=== PATIENT | male | born 1965 | race Caucasian/White ===

== ENCOUNTER 2016-12-20 16:47 | Inpatient (IN) | payer BC, OTHER ==
[~2016-12-20] VITALS: Ht 175.3 cm; Wt 90.7 kg
[2016-12-20 17:30] VITALS: BP 137/80
--- NOTE | 2016-12-20 17:30 | NUR ---
Pre-Admission Note: Client is seen in intake a this time. He is alert and oriented x 4. Able to verbalize his needs. Able to answer questions readily and appropriately regarding the discharge process. Patient verbalized good understanding. Appears anxious and disheveled with generalized sweating. He denies any allergies. Denies any seizure history. He states that he is here to detox from benzodiaepines and opiates. He reports past medical hx of Trigeminal Neuralgia and Depression. Denies having a PCP. VS as ff: Temp 98.1, Pulse 84, RR 19, BP 137/80, PL 6/10. COWS 6/CIWA 6. MD Kay is in to see and evaluate the client. Will continue with the admission process.
--- NOTE | 2016-12-20 17:45 | NUR ---
Admission Note: Patient is a 51 year old male admitted for benzodiazepine and opiate dependence under the care of Dr. Nahum Kay. Alert and oriented x 4. Able to make his needs known. No changes in LOC noted. Respirations even and unlabored. No SOB noted. Skin warm and dry to touch. Abdomen soft and non-distended. Reports LBM was today. Denies N/V/D or constipation noted. Bladder non-distended. No complains of dysuria noted noted. Voids independently. Ambulatory ad ilia with steady gait. He reports past medical hx of Trigeminal Neuralgia and Depression. NKA. FULL CODE. Follows a liquid diet at home due to difficulty chewing related to Dx of Trigeminal Neuralgia. Patient brought in his home meds in the unit. Denies having a seizure. He reports that his longest period of sobriety was 20 years between 23 years old to 44 years old. He denies having a PCP at this time. Substance Use: 1. Valium - since 1 year ago. Orally takes 5-10 mg on and off for the past 3 months. Last taken 5 days ago, 10 mg. 2. Klonopin - since 5 years ago. Orally takes 2 mg daily x 1 year. Last taken 12/19/2016, 2 mg, 3. Tramadol - since 3 months ago. Orally takes 50 mg twice a day for pain. Last taken was 12/19/2016 50 mg. Treatment History: 1. [facility] in [place] - 27 years ago. 2. [facility] - 6 weeks ago and [address] Kay entered admission orders at this time. Will continue to monitor closely.
[2016-12-20] MEDS ORDERED: DICYCLOMINE HCL 20 MG TABLET PO PRN (18:00)
[2016-12-20] MEDS ORDERED: MAG HYDROX/AL HYDROX/SIMETH 30 ML LIQUID UDC PO PRN (18:00)
[2016-12-20] MEDS ORDERED: METHOCARBAMOL 750 MG TABLET PO PRN (18:00)
[2016-12-20] MEDS ORDERED: diphenhydrAMINE 50 MG CAPSULE PO PRN (18:00)
[2016-12-20] MEDS ORDERED: DIAZEPAM 5 MG TABLET PO PRN (18:00)
[2016-12-20] MEDS ORDERED: MIRALAX 17 GM POWD.PACK PO PRN (18:00)
[2016-12-20] MEDS ORDERED: LOPERAMIDE HCL 2 MG CAPSULE PO PRN ×2 (18:00)
[2016-12-20] MEDS ORDERED: ONDANSETRON 4 MG/2 ML VIAL IM PRN (18:00)
[2016-12-20] MEDS ORDERED: DIAZEPAM 10 MG TABLET PO PRN ×2 (18:00)
[2016-12-20] MEDS ORDERED: BUPRENORPHINE HCL 2 MG TAB.SUBL SL PRN (18:00)
[2016-12-20] MEDS ORDERED: HYDROXYZINE PAMOATE 25 MG CAPSULE PO PRN (18:00)
[2016-12-20] MEDS ORDERED: LORAZEPAM 2 MG/1 ML VIAL IM PRN (18:00)
[2016-12-20] MEDS ORDERED: CLONIDINE HCL 0.1 MG TABLET PO PRN (18:00)
[2016-12-20] MEDS ORDERED: [UNRECOGNIZED DRUG - OTHER] (18:05)
[2016-12-20] MEDS ORDERED: QUET50TA PO (18:05)
[2016-12-20] MEDS ORDERED: METH1ADH6 TP (18:05)
[2016-12-20] MEDS ORDERED: PRAM0.253 PO (18:05)
[2016-12-20] MEDS ORDERED: CLON0.1T PO (18:05)
[2016-12-20] MEDS ORDERED: DEXT15CA17 PO (18:05)
[2016-12-20] MEDS ORDERED: HYDR-3895 PO (18:05)
[2016-12-20] MEDS ORDERED: ORPH100T2 PO (18:05)
[2016-12-20] MEDS ORDERED: CELE200C PO (18:05)
[2016-12-20] MEDS ORDERED: MECL-102 PO (18:05)
[2016-12-20] MEDS ORDERED: GABA-534 PO (18:05)
[2016-12-20] MEDS ORDERED: ACET-73 PO (18:05)
[2016-12-20] MEDS ORDERED: SELENIUM (18:05)
[2016-12-20] MEDS ORDERED: BUPR100T6 PO (18:05)
[2016-12-20] MEDS ORDERED: MULT1TAB73 PO (18:05)
[2016-12-20] MEDS ORDERED: ONDA4TAB10 PO (18:05)
[2016-12-20] MEDS ORDERED: IRON1CAP24 PO (18:05)
[2016-12-20] MEDS ORDERED: QUET25TA PO (18:05)
[2016-12-20 18:17] LABS: *AMPHETAMINE, URINE NEGATIVE (NEGATIVE); *BARBITURATE, URINE NEGATIVE (NEGATIVE); *CANNABINOID, URINE NEGATIVE (NEGATIVE); *COCCAINE, URINE NEGATIVE (NEGATIVE); *OPIATE, URINE NEGATIVE (NEGATIVE); *PHENCYCLIDINE SCREEN,URINE NEGATIVE (NEGATIVE)
--- NOTE | 2016-12-20 18:29 | NUR ---
Valum 5 mg PO/Robaxin 750 mg PO given: Patient noted with complain of 6/10 generalized pain and CIWA 6 due to anxiety, agitation and sweats. Medicated patient with Valium 5 mg PO as ordered. Will monitor for effectiveness.
--- NOTE | 2016-12-20 18:44 | NUR ---
End of Shift Notes: Patient is a 51 year old male admitted for opiate and BZO dependence who was placed on a 5-day Valium taper that will be starting tonight. On fall and seizure precautions. Safety precautions in place. All needs met and attended. Will endorse to night nurse for continuity of care.
--- NOTE | 2016-12-20 19:15 | NUR ---
START OF SHIFT Received 51 year old male patient admitted on 12/20/16. Pt is full code with NKA. Pt reports a PMHx of Trigeminal Neuralgia and depression. He reports using valium 5-10 mg daily for 3 months. Last dose as 10 mg on 12/16/16, Klonopin 2 mg daily for 1 year. Last dose was 2 mg on 12/19/16. And Tramadol 50 mg BID for 3 months. Last dose was 50 mg on 12/19/16. Pt placed on 5 day Valium taper. Per endorsement, pt received Valim 5 mg and Robaxin. Will monitor effectiveness. Pt is alert and oriented x4, breathing is even and unlabored. Safety meaures in place. Will continue to monitor.
--- NOTE | 2016-12-20 19:30 | NUR ---
REASSESSMENT PRN Robaxin and Valium effective. Pt reports pain at 5/10 and decreased anxiety. CIWA:5. Will continue to monitor.
[2016-12-20 20:00] VITALS: BP 141/85
[2016-12-20 20:04] LABS: ALANINE AMINOTRANSFERASE 17 U/L (16-63); ALKALINE PHOSPHATASE 72 U/L (50-136); ASPARTATE AMINOTRANSFERASE 14 U/L (15-37); BILIRUBIN,TOTAL 0.4 mg/dL (0.2-1.0); CARBON DIOXIDE 29 mmol/L (21-32); CHLORIDE 100 mmol/L (98-107); CREATININE 1.2 mg/dL (0.6-1.3); GLUCOSE 92 mg/dL (74-106); MAGNESIUM 1.9 mg/dL (1.8-2.4); POTASSIUM 3.7 mmol/L (3.5-5.1); TOTAL PROTEIN, SERUM 7.4 g/dL (6.4-8.2); UREA NITROGEN, BLOOD 12 mg/dL (7-18)
[2016-12-20 20:11] LABS: ETHANOL < 3 MG/DL (0-0)
[2016-12-20 20:17] LABS: BASOPHILS % (AUTO) 0.2 % (0.0-2.0); EOSINOPHILS # (AUTO) 0.1 K/uL (0.0-0.7); EOSINOPHILS % (AUTO) 1.3 % (0.0-7.0); HEMATOCRIT 46.8 % (40-50); HEMOGLOBIN 15.3 G/DL (14.0-18.0); LYMPHOCYTES # (AUTO) 2.5 K/UL (0.8-4.8); LYMPHOCYTES % (AUTO) 27.5 % (20.5-51.5); MEAN CORPUSCULAR HEMOGLOBIN 28.6 UUG (27.0-31.0); MEAN CORPUSCULAR HGB CONC 33 g/dL (32.0-37.0); MEAN CORPUSCULAR VOLUME 87.2 FL (82.0-92.0); MONOCYTES # (AUTO) 0.6 K/UL (0.1-1.30); MONOCYTES % (AUTO) 6.9 % (0.0-11.0); NEUTROPHILS # (AUTO) 5.9 K/UL (1.8-8.9); NEUTROPHILS % (AUTO) 64.1 % (38.5-71.5); PLATELET COUNT (AUTO) 322 K/UL (150-450); RED BLOOD CELL COUNT(AUTO) 5.36 MIL/UL (4.7-6.1); WHITE BLOOD COUNT (AUTO) 9.1 K/UL (4.0-11.2)
[2016-12-20] MEDS: GABAPENTIN 300 MG CAPSULE PO SCH (20:21)
[2016-12-20] MEDS ORDERED: DIAZEPAM 10 MG TABLET PO SCH (21:00)
--- NOTE | 2016-12-20 21:00 | NUR ---
MEDICATION REFUSAL 2100 dose of Valium 10 mg refused by pt. Risks/benefits explained x3. Dr. Kay made aware. Will continue to monitor
--- NOTE | 2016-12-20 21:33 | NUR ---
PRN SUBUTEX Pt complains of body and joint aches, diaphoresis, increased anxiety and agitation. PRN Subutex 4 mg administered as ordered for COWS:12. Breathing even and unlabored, safety measures in place. Will monitor effectiveness.
--- NOTE | 2016-12-20 22:23 | NUR ---
PRN SUBUTEX REASSESSMENT PRN medication effective. COWS:7. Pt lying comfortably in bed. Breathing even and unlabored, safety measures in place. Will monitor.
--- NOTE | 2016-12-21 | NUR ---
VITALS REFUSED/COWS, CIWA DEFERRED 0000 vitals refused by pt. COWS and CIWA deferred d/t pt lying in bed with eyes closed noted to be asleep. Respirations 16, breathing is even and unlabored. Safety measures in place. Will continue to monitor.
--- NOTE | 2016-12-21 04:00 | NUR ---
VITALS REFUSED/COWS, CIWA DEFERRED 0400 vitals refused by pt. COWS and CIWA deferred d/t pt lying in bed with eyes closed noted to be asleep. Respirations 16, breathing is even and unlabored. Safety measures in place. Will continue to monitor.
--- NOTE | 2016-12-21 07:04 | NUR ---
END OF SHIFT Pt is a 51 year old male patient admitted on 12/20/16. Pt is full code with NKA. Pt reports a PMHx of Trigeminal Neuralgia and depression. Pt refused his 2100 dose of Valium, Dr. Kay was made aware. He also received PRN Subutex for COWS:12. He slept a total of 7 hrs, Intake: 796mL, Void: x2, BM:0, COWS:12, CIWA:7. Pt remains alert and oriented x4, breathing is even and unlabored. Safety measures in place. Endorsed to oncoming shift.
[2016-12-21 08:00] VITALS: BP 128/87
[2016-12-21] MEDS: CELEBREX 200 MG PO SCH (08:16)
[2016-12-21] MEDS: MULTIVITAMINS,THERAPEUTIC TABLET PO SCH (08:16)
[2016-12-21] MEDS: GABAPENTIN 300 MG CAPSULE PO SCH ×3 (08:16→21:16)
[2016-12-21] MEDS ORDERED: TUBERCULIN,PURIF.PROT.DERIV. 5 TU/0.1 ML TEST ID ONE (09:00)
[2016-12-21] MEDS ORDERED: PATIENT MAY USE OWN MED- MD OK TOP SCH (09:00)
[2016-12-21] MEDS ORDERED: DIAZEPAM 10 MG TABLET PO SCH (09:00)
--- NOTE | 2016-12-21 09:21 | NUR ---
START OF SHIFT Patient is 51yo male admitted for supervised withdrawal from benzodiazepines and tramadol. Alert and oriented X4, full code with NKA. On assessment this AM: CIWA = 8 and COWS: 5 . Denies SOB, chest pain. Vitals signs: 128/87, HR 60, RR16, 98% 02 sat RA, T 98.2, 8/10 pain. Reports anxiety, dilated pupil, headache, body ache, nausea and numbing/tingling sensation. On 5-Day Valium taper. Med compliant with AM meds. Patient would like to speak to MD about wanting his Valium dose lowered. Encouraged patient to hydrate with fluids. Patient was encouraged to attend group meetings today. Patient goes out with escort for smoke break. Will continue to monitor patient.
[2016-12-21] MEDS: LIDOCAINE 5% PATCH TD SCH (09:51)
[2016-12-21 12:00] VITALS: BP 140/84
--- NOTE | 2016-12-21 12:13 | NUR ---
Therapist prompted client about group times. Client stated he will attend all groups.
[2016-12-21] MEDS: ACETAMINOPHEN 325 MG TABLET PO PRN ×2 (12:26→18:28)
[2016-12-21] MEDS: METHOCARBAMOL 500 MG TABLET PO PRN ×2 (12:26→18:28)
[2016-12-21] MEDS: ONDANSETRON ODT 4 MG TAB.RAPDIS SL PRN (12:26)
[2016-12-21] MEDS: KETOROLAC TROMETHAMINE 30 MG INJ IM PRN (12:28)
--- NOTE | 2016-12-21 12:28 | NUR ---
PRN TYLENOL, ROBAXIN, KETOROLAC AND ONDANSETRON Patient complains of pain on jaw and shoulder 8/10 and nausea. PRN tylenol, robaxin, ketorolac injection, and ondansetron given. Will continue to monitor patient.
--- NOTE | 2016-12-21 13:28 | NUR ---
REASSESSMENT PRN TYLENOL, ROBAXIN, KETOROLAC AND ONDANSETRON Patient reports pain level decreased to 5/10 (from 8/10) and denies nausea at this time.
[2016-12-21] MEDS: DIAZEPAM 5 MG TABLET PO SCH ×2 (14:47→21:16)
[2016-12-21] MEDS: BUPRENORPHINE HCL 2 MG TAB.SUBL SL SCH ×2 (14:48→21:00)
[2016-12-21 16:00] VITALS: BP 132/98
--- NOTE | 2016-12-21 18:28 | NUR ---
PRN TYLENOL AND ROBAXIN Patient complains of pain 6/10, on bodyache and headache, prn robaxin and tylenol given. Will continue to monitop patient.
--- NOTE | 2016-12-21 18:44 | NUR ---
END OF SHIFT Patient is 51yo male admitted for supervised withdrawal from benzodiazepines and tramadol. Alert and oriented X4, full code with NKA. On 5-Day Valium taper. Subutex taper ordered today; however, pt. refused his 15:00pm scheduled dose, notified. Most recent CIWA: 3 and COWS: 2 . Patient reports mild anxiety, bodyache, and nausea. PRN Tylenol, Robaxin, Ketorolac injection and ondansetron given at 1228pm, effective. Patient received Tylenol and robaxin at 1828pm. Patient asked about his seroquel and states he takes it at night, Dr. Cagle notified by charge nurse. Patient tolerating meals without vomiting. PPD skin test performed on LFA to be read on 12/23/16. clothes modeltop steep tender will continue to monitor patient.
--- NOTE | 2016-12-21 19:15 | NUR ---
START OF SHIFT Received 51 year old male patient admitted on 12/20/16. Pt is full code with NKA. Pt reports a PMHx of Trigeminal Neuralgia and depression. He reports using Valium 5-10 mg daily for 3 months. Last dose as 10 mg on 12/16/16, Klonopin 2 mg daily for 1 year. Last dose was 2 mg on 12/19/16. And Tramadol 50 mg BID for 3 months. Last dose was 50 mg on 12/19/16. Pt placed on 3 day Valium taper and 3 day Subutex taper. Per endorsement, pt refused 1500 Subutex. Pt is alert and oriented x4, breathing is even and unlabored. Safety measures in place. Will continue to monitor.
--- NOTE | 2016-12-21 19:19 | NUR ---
REASSESSMENT PRN TYLENOL and ROBAXIN Patient reports pain level decreased to 4/10, effective
[2016-12-21 20:00] VITALS: BP 144/99
--- NOTE | 2016-12-21 21:30 | NUR ---
MEDICATION REFUSAL Pt refused 2100 dose of Subutex 2mg. Pt reports he does not need it. COWS:3. Risks/benefits were explained x3, pt still refused. Breathing is even and unlabored, safety measures in place. Will continue to monitor.
[2016-12-21] MEDS: QUETIAPINE FUMARATE 25 MG TABLET PO PRN (21:43)
--- NOTE | 2016-12-21 21:43 | NUR ---
PRN SEROQUEL Pt complains of inability to sleep. PRN Seroquel administered as ordered. Breathing is even and unlabored, safety measures in place. Will monitor effectiveness.
--- NOTE | 2016-12-21 22:43 | NUR ---
PRN SEROQUEL REASSESSMENT PRN medication effective. Pt lying in bed with eyes closed noted to be asleep. Respirations 16, breathing is even and unlabored. Safety measures in place. Will monitor.
--- NOTE | 2016-12-22 | NUR ---
VITALS REFUSED/COWS,CIWA DEFERRED 0000 vitals refused. COWS and CIWA deferred d/t pt lying in bed with eyes closed noted to be asleep. Respirations 16, breathing is even and unlabored. Safety measures in place. Will monitor.
--- NOTE | 2016-12-22 04:00 | NUR ---
VITALS REFUSED/COWS,CIWA DEFERRED 0400 vitals refused. COWS and CIWA deferred d/t pt lying in bed with eyes closed noted to be asleep. Respirations 16, breathing is even and unlabored. Safety measures in place. Will continue to monitor.
--- NOTE | 2016-12-22 07:00 | NUR ---
END OF SHIFT Pt is a 51 year old male patient admitted on 12/20/16. Pt is full code with NKA. Pt reports a PMHx of Trigeminal Neuralgia and depression. Pt placed on 3 day Valium taper and 3 day Subutex taper. He refused his 2100 dose of Subutex. At 2143 he received PRN Seroquel. He slept a total of 8hrs, Intake: 500mL, Void: x3, BM:0, COWS:3, CIWA:3. Pt remains alert and oriented x4, breathing is even and unlabored. Safety meaures in place. Endorsed to oncoming shift.
--- NOTE | 2016-12-22 07:32 | NUR ---
Start of shift note; Received report from night nurse. Patient is a 51 year old male admitted on 12/20/16 for Benzo and Opiate withdrawals. Patient was placed on a 3 day Valium and 3 day Subutex tapers, no adverse reactions noted. . Patient reported past Medical history of trigeminal neuralgia, depression. Patient slept for 8 hours. Patient is on fall and seizure precaution. Bed in lowest position, call light within reach. Will continue to monitor patient.
[2016-12-22] MEDS: SALONPAS TD SCH (08:46)
[2016-12-22] MEDS: CELEBREX 200 MG PO SCH (08:46)
[2016-12-22] MEDS: LIDOCAINE 5% PATCH TD SCH (08:47)
[2016-12-22] MEDS: MULTIVITAMINS,THERAPEUTIC TABLET PO SCH (08:47)
[2016-12-22] MEDS: GABAPENTIN 300 MG CAPSULE PO SCH ×3 (08:47→21:26)
[2016-12-22] MEDS: BUPRENORPHINE HCL 2 MG TAB.SUBL SL SCH ×4 (08:52→21:00)
[2016-12-22] MEDS: DIAZEPAM 5 MG TABLET PO SCH ×4 (08:52→22:39)
[2016-12-22 08:53] VITALS: BP 122/82
[2016-12-22] MEDS ORDERED: DIAZEPAM 5 MG TABLET PO SCH (09:00)
[2016-12-22] MEDS: DULOXETINE 60 MG CAPSULE.DR PO SCH (09:01)
[2016-12-22 10:09] LABS: HEPATITIS B SURFACE AG Negative (Negative)
[2016-12-22] MEDS: ACETAMINOPHEN 325 MG TABLET PO PRN ×2 (11:02→21:26)
[2016-12-22] MEDS: METHOCARBAMOL 500 MG TABLET PO PRN ×2 (11:02→21:26)
--- NOTE | 2016-12-22 11:02 | NUR ---
PRN medication; Patient is complaining of shoulder pain rated 5/10 and also muscle aches. PRN Tylenol 650mg PO and Robaxin 500mg PO PRN given for pain and muscle aches. Will continue to monitor patient for effectiveness of medication.
[2016-12-22 12:00] VITALS: BP 132/88
--- NOTE | 2016-12-22 12:02 | NUR ---
Re-assessment; Patient stated decrease of muscle aches and shoulder pain rated 2/10 at this time. PRN medications were effective,.
--- NOTE | 2016-12-22 13:22 | NUR ---
Therapist prompted client about group times. Client stated he will attend all groups today.
[2016-12-22 16:00] VITALS: BP 135/84
[2016-12-22] MEDS: KETOROLAC TROMETHAMINE 30 MG INJ IM PRN (16:47)
--- NOTE | 2016-12-22 16:47 | NUR ---
PRN medication; Patient is complaining of shoulder pain rated 9/10, PRN Toradol 30mg IM given on left deltoid area as per ordered. Will continue to monitor patient for effectiveness of medication.
--- NOTE | 2016-12-22 17:47 | NUR ---
Re-assessment; Patient reports pain of 3/10 at this time. Toradol PRN medication is effective.
--- NOTE | 2016-12-22 18:17 | NUR ---
End of shift note; Patient is AOX4. Patient is a 51 year old male admitted on 12/20/16 for Benzo and Opiate withdrawals. Patient was placed on a 3 day Valium and 3 day Subutex tapers, no adverse reactions noted. . Patient reported past Medical history of trigeminal neuralgia, depression. Patient is on fall and seizure precaution. Bed in lowest position, call light within reach. Patient was non-compliant with medication regime, patient was educated regarding the importance of compliance to medications pt verbalized understanding. MD was notified regarding patient's non compliance to medications. Met all needs.
[2016-12-22 20:00] VITALS: BP 138/94
--- NOTE | 2016-12-22 20:00 | NUR ---
START OF SHIFT NOTE RECEIVED REPORT FROM DAY SHIFT NURSE. PATIENT IS A 51 YEAR OLD MALE, ADMITTED FOR OPIATE/BENZO DEPENDENCE. PATIENT IS A 5 DAYS VALIUM AND SUBUTEX TAPER. PATIENTS DRUG OF CHOICE ARE VALIUM, KLONOPIN AND TRAMADOL. PATIENT REPORTS PMH OF TRIGEMINAL NEURALGIA AND DEPRESSION. NO SEIZURE HISTORY. PER DAY SHIFT NURSE, PATIENT HES BEEN REFUSING SUBUTEX AND VALIUM . DR. REYNOSO AWARE. LAST COWS 3 AND CIWA 2. ON FALL PRECAUTION. SAFETY MEASURES IN PLACE. CALL LIGHT IN REACH. WILL CONTINUE TO MONITOR.
--- NOTE | 2016-12-22 21:00 | NUR ---
SUBUTEX REFUSED PATIENT REFUSED HIS SUBUTEX. EXPLAINED RISKS/BENEFITS BUT STILL REFUSED. DR. REYNOSO AWARE. WILL CONTINUE TO MONITOR
[2016-12-22] MEDS: QUETIAPINE FUMARATE 25 MG TABLET PO PRN (21:26)
--- NOTE | 2016-12-22 21:26 | NUR ---
PRN SEROQUEL,TYLENOL AND ROBAXIN ADMINISTRATION PATIENT C/O JAW/BOTH SHOULDER PAIN 11/27. PRN TYLENOL AND ROBAXIN GIVEN. PATIENT ALSO REQUESTS FOR SLEEP AID. PRN SEROQUEL GIVE. WILL MONITOR FOR EFFECTIVENESS
--- NOTE | 2016-12-22 22:26 | NUR ---
PRN ROBAXIN AND TYLENOL RE-ASSESSMENT PATIENT STATES TYLENOL AND ROBAXIN HELPFUL. PAIN LEVEL IS 2/10 AT THIS TIME. WILL CONTINUE TO MONITOR
--- NOTE | 2016-12-22 22:39 | NUR ---
VALIUM ADMINISTRATION PATIENT REFUSED TO TAKE HIS VALIUM AND THEN CHANGED HIS MIND, HE STATES THAT HE WANTS TO TAKE IT AT THIS TIME. PATIENT NOTED RESTLESS AND ANXIOUS. WILL CONTINUE TO MONITOR.
--- NOTE | 2016-12-22 23:00 | NUR ---
PRN SEROQUEL RE-ASSESSMENT PATIENT ASLEEP AT THIS TIME. RESPIRATION EVEN AND UNLABORED. SAFETY MEASURES IN PLACE. CALL LIGHT IN REACH. WILL CONTINUE TO MONITOR
[2016-12-23] VITALS: BP 135/75
[2016-12-23 04:00] VITALS: BP 117/77
--- NOTE | 2016-12-23 07:19 | NUR ---
END OF SHIFT NOTE PATIENT IS A 51 YEAR OLD MALE, ADMITTED FOR OPIATE/BENZO DEPENDENCE. PATIENT IS A 5 DAYS VALIUM AND SUBUTEX TAPER. PATIENTS DRUG OF CHOICE ARE VALIUM, KLONOPIN AND TRAMADOL. PATIENT REPORTS PMH OF TRIGEMINAL NEURALGIA AND DEPRESSION. NO SEIZURE HISTORY. PATIENT OF ANXIETY, PAIN ON JAW/BOTH SHOULDERS 7/10 AND MILD HEADACHE , RESTLESS AND AGITATED. PRN TYLENOL AND ROBAXIN GIVEN. PATIENT ALSO REQUESTED SLEEP AID MEDICATION. PRN SEROQUEL GIVEN. PATIENT NON-COMPLIANT WITH MEDICATIONS, PATIENT REFUSED HIS SUBUTEX, EXPLAINED RISKS/BENEFITS BUT STILL REFUSED. PATIENT REFUSED TO TAKE HIS VALIUM BUT THEN HE CHANGED HIS MIND AND TOOK IT AT 2239. DR. REYNOSO MADE AWARE. ON FALL PRECAUTION. SAFETY MEASURES IN PLACE. CALL LIGHT IN REACH. WILL CONTINUE TO MONITOR. SLEPT 8 HOURS. FLUID INTAKE 500 ML. VOIDED X 2 . BM X 1. LAST COWS 1 AND CIWA 1 .
--- NOTE | 2016-12-23 07:25 | NUR ---
Start of shift report Patient is a 51 year old male admitted to [facility] on 12-20-16 for Valium and Klonopin dependence. Patient is on a five day Valium taper, and 3 day Subutex taper. He is refusing both Subutex and Valium occasionally. He has past medical history of trigeminal Neuralgia, and depression. He uses CPAP at night. Patient has no history of seizures. His last COWS was 1 and CIWA 1 reported by shiftman Patient is a full code, has no known allergies, is on a regular diet. Patient currently resting in bed, with 2 siderails ups, bed in lowest locked position. Will continue to monitor
[2016-12-23 08:00] VITALS: BP 114/66
[2016-12-23] MEDS: SALONPAS TD SCH ×2 (09:00→18:52)
[2016-12-23] MEDS ORDERED: DIAZEPAM 5 MG TABLET PO SCH ×2 (09:00)
[2016-12-23] MEDS ORDERED: BUPRENORPHINE HCL 2 MG TAB.SUBL SL SCH (09:00)
--- NOTE | 2016-12-23 09:30 | NUR ---
Medications refused Subutex and Valium refused by patient. Dr Kay aware. Patient reported pain 7 out of 10 in Jaw and Shoulder. Patient states this is due to his chronic pain, and does not need or want any further intervention at this time.
[2016-12-23] MEDS: DULOXETINE 60 MG CAPSULE.DR PO SCH (09:33)
[2016-12-23] MEDS: GABAPENTIN 300 MG CAPSULE PO SCH ×4 (09:35→21:55)
[2016-12-23] MEDS: CELEBREX 200 MG PO SCH (09:35)
[2016-12-23] MEDS: LIDOCAINE 5% PATCH TD SCH ×2 (09:36→14:01)
[2016-12-23] MEDS: MULTIVITAMINS,THERAPEUTIC TABLET PO SCH (09:37)
--- NOTE | 2016-12-23 10:00 | NUR ---
Med not administered/Not available Patient does not have Salonspas patches left per pharmacy. Patient brought from home. Patient notified and states she will bring today. Dr Kay is aware.
[2016-12-23 12:00] VITALS: BP 151/90
[2016-12-23] MEDS: BUPRENORPHINE HCL 2 MG TAB.SUBL SL SCH ×2 (13:14→21:00)
[2016-12-23] MEDS: DIAZEPAM 5 MG TABLET PO SCH ×2 (13:15→21:54)
[2016-12-23] MEDS ORDERED: ACET325T53 PO (14:53)
[2016-12-23] MEDS ORDERED: DICY20TA28 PO (14:53)
[2016-12-23] MEDS ORDERED: GABA-534 PO ×2 (14:53)
[2016-12-23] MEDS ORDERED: HYDR-3895 PO (14:53)
[2016-12-23] MEDS ORDERED: QUET25TA PO (14:53)
[2016-12-23] MEDS ORDERED: DULO60CA45 PO (14:53)
[2016-12-23] MEDS ORDERED: METH-406 PO (14:53)
[2016-12-23] MEDS ORDERED: LIDO30AD10 TD (14:53)
[2016-12-23 16:00] VITALS: BP 142/92
--- NOTE | 2016-12-23 17:00 | NUR ---
PRN medication administration Patient with complaints of back and jaw pain of a 7 out of 10. Patient received IM Toradol PRn as well as PRN tylenol. Will continue to monitor.
[2016-12-23] MEDS: KETOROLAC TROMETHAMINE 30 MG INJ IM PRN (17:07)
[2016-12-23] MEDS: ACETAMINOPHEN 325 MG TABLET PO PRN (17:07)
--- NOTE | 2016-12-23 17:30 | NUR ---
reassessment of patient following PRN Patient states his pain level has decreased 5 after PRN toradol and Tylenol and he feels comfortable. will continue to monitor
--- NOTE | 2016-12-23 18:46 | NUR ---
reassessment one hour after PRN reassessment one hout following TOradol and Tylenol. Patient reports feeling comfortable with current pain a 4 out of 10 with no additional complaints`
--- NOTE | 2016-12-23 18:53 | NUR ---
Unscheduled administration Unable to administer salonpas at 0900 d/t pt not having anymore left. Pt just brought in more. Administering late.
--- NOTE | 2016-12-23 19:13 | NUR ---
End of shift note Pt was admitted for benzo and opiate dependence. Pt has a PMHx of trigeminal neuralgia and depression. Pt has chronic pain from his conditions. Pt is on a 5 day valium and 5 day subutex taper. Pt is on a pureed regular diet, pt has NKA, and is a full code. Pt had one dose of PRN tylenol and PRN toradol with some effectiveness during the shift. Pt drank 1280ml of fluids, ate 100% of meals, had 2 voids and 2 BM's during the shift. Pt states that he feels comfortable at this time. SBAR report endorsed to oncoming shift.
--- NOTE | 2016-12-23 19:30 | NUR ---
START OF SHIFT Patient is a 51 year old male admitted to [facility] on 12-20-16 for Valium and Klonopin dependence. Patient is on a five day Valium taper, and 3 day Subutex taper.Per report Pt is refusing both Subutex and Valium occasionally. He has past medical history of trigeminal Neuralgia, and depression. He uses CPAP at night. Patient has no history of seizures. His last COWS was 1 and CIWA 1 Pt is a full code, has no known allergies, is on a regular diet. Patient received in stable condition, resting in bed, with siderails up x 2, bed in lowest locked position. Will continue to monitor
[2016-12-23 20:00] VITALS: BP 126/85
[2016-12-23] MEDS: METHOCARBAMOL 750 MG TABLET PO PRN (20:22)
--- NOTE | 2016-12-23 20:25 | NUR ---
PRN ROBAXIN GIVEN ORDERED FOR C/O MUSCLE ACHES PER PT REQUEST.WILL MONITOR.
--- NOTE | 2016-12-23 21:25 | NUR ---
PT VERBALIZES A DECREASE IN MUSCLE ACHES AND PAIN.
--- NOTE | 2016-12-23 22:00 | NUR ---
PT REFUSED TO TAKE SUBUTEX ORDERED.
[2016-12-24] VITALS: BP 146/84
[2016-12-24 04:00] VITALS: BP 117/75
--- NOTE | 2016-12-24 07:30 | NUR ---
END OF SHIFT Patient is a 51 year old male admitted to [facility] on 12-20-16 for Valium and Klonopin dependence. Patient is on a five day Valium taper, and 3 day Subutex taper.Per report Pt is refusing both Subutex and Valium occasionally. He has past medical history of trigeminal Neuralgia, and depression. He uses CPAP at night. Patient has no history of seizures. His last COWS was 1 and CIWA 1 Pt is a full code, has no known allergies, is on a regular diet. Pt slept 6 hrs,fluid intake was 1096 mls,voided x 3.PRN Robaxin given last night with good effect.Pt refused Subutex last night.Pt is resting in bed, with siderails up x 2, bed in lowest locked position. Will continue to monitor
--- NOTE | 2016-12-24 08:00 | NUR ---
START OF SHIFT Rcvd endorsement from ongoing nurse, client is in room, a/o x4, he presents with depressed mood, flat affect, he reports fatigue, abdominal spasms and restless legs. CPAP at bedside. Encouraged client to increase fluid intake as tolerated to facilitate detox. Encourage client to attend group therapy for skills to maintain sobriety. Client is a 51 yo male admitted for withdrawal from benzodiazepines and tramadol. Last COWS 3/ CIWA 2 @ 1999. Client completed 3 days Diazepam/Subutex taper, tolerated well. PRN Robaxin for muscle aches, noted effective. Client slept for 6 hours. Client denies a history of withdrawal-induced seizure. He is on seizure precautions. Call light within reach. Side rails up x2/padded, bed locked and in low position.
[2016-12-24 08:55] VITALS: BP 128/68
[2016-12-24] MEDS ORDERED: DIAZEPAM 5 MG TABLET PO SCH (09:00)
[2016-12-24] MEDS: MULTIVITAMINS,THERAPEUTIC TABLET PO SCH (09:51)
[2016-12-24] MEDS: CELEBREX 200 MG PO SCH (09:51)
[2016-12-24] MEDS: GABAPENTIN 300 MG CAPSULE PO SCH ×3 (09:51→21:03)
[2016-12-24] MEDS: DULOXETINE 60 MG CAPSULE.DR PO SCH (09:51)
[2016-12-24] MEDS: LIDOCAINE 5% PATCH TD SCH ×2 (09:51)
[2016-12-24] MEDS: SALONPAS TD SCH (09:52)
[2016-12-24] MEDS: ACETAMINOPHEN 325 MG TABLET PO PRN (13:40)
[2016-12-24] MEDS: METHOCARBAMOL 750 MG TABLET PO PRN (13:40)
--- NOTE | 2016-12-24 13:40 | NUR ---
PRN Robaxin 750mg, Tylenol 650mg Client reports muscle spasms around shoulders, and generalized body aches 7/10, above medications administered,. Call light within reach. Will continue to monitor.
[2016-12-24 14:10] VITALS: BP 119/70
--- NOTE | 2016-12-24 14:40 | NUR ---
Reassessment PRN Robaxin 750mg, Tylenol 650mg Client reports relief from muscle spasms around shoulders, and generalized body aches 2/10,but tolerable. Call light within reach.
[2016-12-24 14:56] LABS: *AMPHETAMINE, URINE NEGATIVE (NEGATIVE); *BARBITURATE, URINE NEGATIVE (NEGATIVE); *CANNABINOID, URINE NEGATIVE (NEGATIVE); *COCCAINE, URINE NEGATIVE (NEGATIVE); *OPIATE, URINE NEGATIVE (NEGATIVE); *PHENCYCLIDINE SCREEN,URINE NEGATIVE (NEGATIVE)
[2016-12-24 17:00] VITALS: BP 142/92
--- NOTE | 2016-12-24 19:28 | NUR ---
END OF SHIFT Client is a 51 yo male admitted for withdrawal from benzodiazepines and tramadol. Client completed 3 day Ativan/Subutex taper, tolerated well, last COWS 3/CIWA 2. He is scheduled for discharge tomorrow, urine drug test result on file. PRN Robaxin and Tylenol for muscle spasms and body aches, noted effective. Client is in room, a/o x 4, he continues to present with depressed mood, flat affect. Client was compliant with 2/3 of group therapy. Adequate intake and output. Safety measures in place, call light within reach, side rails up x2, bed locked and in low position. Endorsed to incoming nurse.
--- NOTE | 2016-12-24 19:30 | NUR ---
START OF SHIFT Patient is a 51 year old male admitted to [facility] on 12-20-16 for Benzo and Tramadol dependence.A/O X 4,mood is sad and depressed with flat affect. Patient He has past medical history of trigeminal Neuralgia, and depression. He uses CPAP at night. Patient has no history of seizures. His last COWS was 3 and CIWA 2.Pt has completed his Ativan/Subutex tapers and is scheduled for discharge tomorrow. Pt is a full code, has no known allergies, is on a regular diet. All safety measures in place,bed is locked in the lowest position, with siderails up x 2. Will continue to monitor.
[2016-12-24 20:00] VITALS: BP 148/99
[2016-12-24] MEDS: QUETIAPINE FUMARATE 25 MG TABLET PO PRN (21:03)
[2016-12-24] MEDS: ONDANSETRON ODT 4 MG TAB.RAPDIS SL PRN (21:04)
--- NOTE | 2016-12-24 21:05 | NUR ---
PRN ZOFRAN GIVEN ORDERED FOR NAUSEA AND SEROQUEL GIVEN ORDERED FO INSOMNIA PER PT REQUEST.WILL MONITOR.
--- NOTE | 2016-12-24 22:05 | NUR ---
PRN MEDS EFFECTIVE,NAUSEA RELIEVED.PT RESTING IN BED WITH EYES CLOSED.STILL TRYING TO SLEEP.REQUESTED NOT TO WOKEN UP FOR V/S IF HE IS SLEEPING.
--- NOTE | 2016-12-25 | NUR ---
PT REFUSED V/S. COWS/CIWA DEFERRED. Pt sleeping comfortably in his bed,breathing is even and non labored,no s/s of distress noted.All safety measures in place, will be monitored for safety.
--- NOTE | 2016-12-25 06:43 | NUR ---
END OF SHIFT Patient is a 51 year old male admitted to [facility] on 12-20-16 for Benzo and Tramadol dependence.A/O X 4,mood is sad and depressed with flat affect. Patient He has past medical history of trigeminal Neuralgia, and depression. He uses CPAP at night. Patient has no history of seizures. His last COWS was 3 and CIWA 2.PRN Zofran and Seroquel were given and effective.Pt has completed his Ativan/Subutex tapers and is scheduled for discharge today. Pt is a full code, has no known allergies, is on a regular diet.Pt slept 9 hrs,fluid intake was 500 mls,voided x 1. All safety measures in place,bed is locked in the lowest position, with siderails up x 2. Will continue to monitor.
--- NOTE | 2016-12-25 07:35 | NUR ---
START OF SHIFT Received report from night nurse. 51 year old male patient admitted on 12/20/16 for Valium, Klonopin and Tramadol dependence. Pt reports allergies no allergies, follows a pureed diet and requests to be full code. Pt has completed ordered Subutex and Valium taper and is medically cleared for discharge. No acute s/s of withdrawal noted throughout night. COWS 3 and CIWA 2 at 2000. V/S remain WNL. Pt received PRN Seroquel and slept for 9 hours. Pt c/o nausea at night and PRN Zofran was administered and effective. All needs met at this time. Will continue to monitor.
[2016-12-25 08:00] VITALS: BP 116/78
[2016-12-25] MEDS: MULTIVITAMINS,THERAPEUTIC TABLET PO SCH (08:35)
[2016-12-25] MEDS: CELEBREX 200 MG PO SCH (08:35)
[2016-12-25] MEDS: LIDOCAINE 5% PATCH TD SCH ×2 (08:35)
[2016-12-25] MEDS: GABAPENTIN 300 MG CAPSULE PO SCH (08:35)
[2016-12-25] MEDS: DULOXETINE 60 MG CAPSULE.DR PO SCH (08:36)
[2016-12-25] MEDS: SALONPAS TD SCH (08:37)
[2016-12-25] MEDS: ACETAMINOPHEN 325 MG TABLET PO PRN (09:26)
[2016-12-25] MEDS: ONDANSETRON ODT 4 MG TAB.RAPDIS SL PRN (09:26)
--- NOTE | 2016-12-25 09:27 | NUR ---
PRN MEDICATIONS PRN Zofran and Tylenol administered for nausea and headache 5/10 headache. Pt education and relaxation techniques encouraged, will continue to monitor.
[2016-12-25] MEDS ORDERED: MECLIZINE HCL 25 MG TABLET PO ONE (09:30)
--- NOTE | 2016-12-25 09:55 | NUR ---
D/C NOTE Pt is A/O x4. V/S remain WNL. Pt denies SI/HI or hallucinations. Pt shows no s/s of acute withdrawal at this time, and is stable. has medically cleared pt for d/c. Education on Hepatitis C, smoking cessation and medication side effects provided. Pt verbalizes understanding. All pt belongings are in belonging bag, including prescriptions, and home medications. Pt reports that Tylenol and Zofran were effective. COWS 2 and CIWA 2. Pt is being accompanied by [facility] at this time to be transported to rehab. All needs met.
== END 2016-12-25 09:55 | disposition other institution (70) | DRG 895 ==
LOC: SRC 17:12
PROVIDERS: ADMIT Internal Medicine; ATTEND Internal Medicine
PROC: HZ2ZZZZ Detoxification Services for Substance Abuse Treatment (ICD-10-PCS; principal; 2016-12-20)
PROC: HZ41ZZZ Group Counseling for Substance Abuse Treatment, Behavioral (ICD-10-PCS; 2016-12-21)
PROC: HZ31ZZZ Individual Counseling for Substance Abuse Treatment, Behavioral (ICD-10-PCS; 2016-12-21)
DX: F13.230 Sedative, hypnotic or anxiolytic dependence with withdrawal, uncomplicated (principal); F33.2 Major depressive disorder, recurrent severe without psychotic features; F10.21 Alcohol dependence, in remission; F11.23 Opioid dependence with withdrawal; Z81.8 Family history of other mental and behavioral disorders; Z81.1 Family history of alcohol abuse and dependence; F41.9 Anxiety disorder, unspecified; Z59.1 Inadequate housing; G47.33 Obstructive sleep apnea (adult) (pediatric); G89.4 Chronic pain syndrome; G50.0 Trigeminal neuralgia; R68.84 Jaw pain; I15.9 Secondary hypertension, unspecified; M50.90 Cervical disc disorder, unspecified, unspecified cervical region; Z79.899 Other long term (current) drug therapy
CPT/HCPCS: 36415; 70030-TC; 80307; 83735; 85025; 86580; 86592; 86705; 86803; 87340; 87806; G0480; J1885; J8597; Q0162; Q0163